=== PATIENT | male | born 1985 | race Two or more races ===

== ENCOUNTER 2021-07-14 04:39 | Emergency (ER) | payer OTHER ==
[~2021-07-14] VITALS: Ht 160 cm; Wt 70.0 kg
[2021-07-14] MEDS ORDERED: TENO300 PO (05:43)
[2021-07-14 07:41] VITALS: BP 130/70
[2021-07-15 08:07] LABS: HIV INTERPRETATION HIV-1 Positive; HIV-1 ANTIBODY(MULTISPOT) Positive (Negative); HIV-2 ANTIBODY(MULTISPOT) Negative (Negative)
== END 2021-07-14 08:00 | disposition home or self-care (01) ==
LOC: EMS 04:40
DX: Z11.4 Encounter for screening for human immunodeficiency virus [HIV] (principal)
CPT/HCPCS: 86701; 86702; 99283